=== PATIENT | male | born 1985 | race Caucasian/White ===

== ENCOUNTER 2018-06-01 12:25 | Emergency (ER) | payer OTHER ==
[2018-06-01] MEDS: MECLIZINE 12.5 MG TAB PO (13:25)
== END 2018-06-01 14:58 | disposition home or self-care (01) ==
LOC: FTE 12:25
DX: H93.11 Tinnitus, right ear (principal); H91.90 Unspecified hearing loss, unspecified ear; R42 Dizziness and giddiness; F17.210 Nicotine dependence, cigarettes, uncomplicated; R40.2142 Coma scale, eyes open, spontaneous, at arrival to emergency department; R40.2252 Coma scale, best verbal response, oriented, at arrival to emergency department; R40.2342 Coma scale, best motor response, flexion withdrawal, at arrival to emergency department
CPT/HCPCS: 70450; 99284-25